=== PATIENT | female | born 1990 | race Caucasian/White ===

== ENCOUNTER 2016-03-22 18:52 | Emergency (ER) | payer OTHER ==
[~2016-03-22] VITALS: Ht 162.6 cm; Wt 50.5 kg
[~2016-03-22 18:52] MED LIST: DICY10CA56 PO; IBUP200T48 PO; ONDA8TAB10 PO; PREN-20 PO; TRAM50TA2 PO
[2016-03-22 18:55] VITALS: BP 107/67; PULSE 74; O2SAT 98
[2016-03-22] MEDS ORDERED: SODI126M NASAL (19:03)
[2016-03-22] MEDS ORDERED: ALBU18HF INHALATION (19:03)
[2016-03-22] MEDS ORDERED: NAPR500T5 PO (19:03)
--- NOTE | 2016-03-22 19:18 | ED.REPORT ---
HPI-URI / Cough / Cold Date of Service Mar 22, 2016 ED Provider: Dr. Philippe Cordova D.O. A 26 year old female with a medical history including asthma, IBS, and endometriosis presents to the ED with a productive cough onset two months ago. The patient also reports bilateral ear pain, subjective fever, chills, generalized myalgias, rhinorrhea, sore throat, and one streak of bloody sputum this morning. She denies a sudden-onset headache. Nursing Notes Stated Complaint: COUGH, THROAT PAIN Chief Complaint: FLU/Cold Symptoms Nursing Notes Reviewed: Yes Allergies: Coded Allergies: Contrast Media (Verified Allergy, Unknown, 03/22/16) Iodine and Iodide Containing Produc (Verified Allergy, Unknown, 03/22/16) aspirin (Verified Adverse Reaction, Severe, NV, 03/22/16) Scheduled Albuterol Sulfate (Ventolin HFA Inhaler) 200 Puff/18 Gm Inhaler 2 PUFF INHALATION BID Sodium Chloride (Saline Nasal Mist) 126 Ml Mist 1 SPRAY NASAL DAILY Scheduled PRN Naproxen (Naproxen) 500 Mg Tablet.dr 500 MG PO BID PRN PRN For Pain General Time Seen by MD: 19:17 Chief Complaint Cough, productive... Hx Obtained From: Patient Arrived By: Walk-in Onset Occurred: More than a week ago... (2 months) Symptom Duration: Since onset Location: : Diffuse myalgia: Ear left: Ear right: Neck (Throat) Quality: Painful Severity: Current: Moderate Severity: Maximum: Moderate Associated with: Reports: Body aches, Chills, Fever (Subjective), Rhinorrhea Pertinent Negative: Relieved by nothing Related History: Reports: Asthma Context: Immunization Status Immunizations Up to Date: Seasonal influenza Immunizations Not Up to Date: Tetanus, Pneumococcal Recent Healthcare: No recent doctor visit Past Medical History Past Medical History 1. Seasonal allergies. 2. Anemia. 3. Asthma. 4. IBS. 5. Endometriosis. 6. Chronic Pelvic Pain Past Surgical History 1. Bilateral tubal ligation (2013). 2. section 2 (). 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 Musculoskeletal: Reports: Myalgia (Generalized) Physical Exam Initial Vital Signs Vital Signs (First) Date Time Temp Pulse Resp B/P Pulse Ox O2 Delivery O2 Flow Rate FiO2 03/22/16 18:55 36.9 74 107/67 98 Room Air 03/22/16 22:15 12 Initial VS: Reviewed Head / Eyes: Atraumatic, Normocephalic Neck: Supple, Full range of motion Cardiovascular: Regular rate & rhythm, Heart sounds normal Skin: Warm, Dry, No cyanosis Neurologic: Alert, Oriented, Nonfocal Psychiatric: Mood/affect normal, Behavior normal, Normal thought content General/Constitutional: Awake, Alert Patient's skin feels hot ENT: Airway patent, Mucous membranes moist Pharynx / Tonsils / Uvula: Positive: Pharyngeal erythema Right Ear / Mastoid: Positive: Fluid behind TM purulent, Tympanic membrane red Left Ear / Mastoid: Positive: Fluid behind TM clear Respiratory / Chest: Breath sounds NL, Breath sounds = bilat, No respiratory distress Patient is coughing Interpretation & Diagnostics Interpretation & Diagnostics: Influenza Negative Bedside Rapid Strep Test Negative Re-Eval/Medical Decision Med Decision/Clinical Course I discussed pulmonary emboli and d-dimer testing with Viri. She is on hormones and she has pleuritic chest pain. I talked to her about my recommendations for d-dimer. She declines this. She states she does not feel like she has a blood clot. Her #1 complaint is a sore throat and earache. She states that she would not undergo a CT scan even if the d-dimer is positive for allergies. I did ask her to return if she changes her mind about this or if she develops any chest pain or shortness of breath. Source of Hx: Old records Re-Evaluation/Progress : Time of Eval: 21:37 Patient Status: Condition improved Re-Evaluation/Progress Note: Discussed with patient lab results, diagnosis, and plan for discharge. Follow-up and return to the ER instructions given. Patient agrees with plan for care and all questions were addressed. Counseled Regarding: Diagnosis, Lab results, Need for follow-up, When/why to return to ED Discharge & Departure Impression: Primary Impression: Bronchitis Additional Impressions: Otitis media Otitis media type: suppurative Laterality: right Chronicity: acute Recurrence: not specified Spontaneous tympanic membrane rupture: without spontaneous rupture Qualified Code: H66.001 - Acute suppurative otitis media without spontaneous rupture of ear drum, right ear Pharyngitis Pharyngitis/tonsillitis etiology: unspecified etiology Qualified Code: J02.9 - Acute pharyngitis, unspecified Disposition: Home Discharge Condition All VS Reviewed: Yes Condition: Stable Patient Instructions: Acute Bronchitis (ED), Otitis Media (ED), Pharyngitis (ED ) Additional Instructions: Thank you for entrusting us with your care. Please take Augmentin twice daily for one week as prescribed. 1-2 Percocet every six hours as needed for ear pain. Do not drink alcohol, drive, or consume acetaminophen while taking Percocet Call your primary care provider tomorrow for a follow-up appointment. Return to the ER with any new or worsening symptoms. Referrals: Negar Reis MD (PCP) Dedeibe Attestation Portions of this note were transcribed by Katharine Shen. I, Dr. Cordova, personally performed the history, physical exam, and medical decision-making; I reviewed and confirmed the accuracy of the information in the transcribed note. Signed by: Aly Carvalho, 03/22/2016, 21:49 copies to: Negar Reis MD, Todd P DO Mar 22, 2016 19:18 KATHARINE SHEN Mar 22, 2016 21:25
[2016-03-22] MEDS ORDERED: Amoxicillin-Clav 875-125 mg Tablet PO ONE (21:25)
[2016-03-22] MEDS ORDERED: _HYDROcodone/APAP 5-325 mg Tablet PO PRN (21:25)
[2016-03-22] MEDS ORDERED: _oxyCODONE/APAP 5-325 mg Tablet PO PRN (21:35)
[2016-03-22 22:15] VITALS: BP 118/72; PULSE 72; RESP 12; O2SAT 98
== END 2016-03-22 22:18 | disposition home or self-care (01) ==
LOC: SED 19:18
DX: J40 Bronchitis, not specified as acute or chronic (principal); H66.001 Acute suppurative otitis media without spontaneous rupture of ear drum, right ear; J02.9 Acute pharyngitis, unspecified; J45.909 Unspecified asthma, uncomplicated; Z87.891 Personal history of nicotine dependence; Z88.8 Allergy status to other drugs, medicaments and biological substances; Z91.041 Radiographic dye allergy status

== ENCOUNTER 2016-04-12 06:49 | Emergency (ER) | payer OTHER ==
[~2016-04-12] VITALS: Ht 162.6 cm; Wt 50.5 kg
[~2016-04-12 06:49] MED LIST changes: +ALBU18HF INHALATION; -DICY10CA56 PO; -IBUP200T48 PO; +NAPR500T5 PO; -ONDA8TAB10 PO; -PREN-20 PO; +SODI126M NASAL; -TRAM50TA2 PO
[2016-04-12 06:51] VITALS: BP 99/68; PULSE 102; RESP 15; O2SAT 98
--- NOTE | 2016-04-12 09:04 | ED.REPORT ---
HPI-General Illness Date of Service Apr 12, 2016 ED Provider: FrankCarlos DO 26yoF with PMH remarkable for asthma, IBS, and endometriosis presents with 3 month history of cough, runny nose, sore throat. The patient was seen March 22 and started on a week of Augmentin without resolution of symptoms. The patient states that the cough is worse at night, and she is developing chest pain described as substernal and made worse with coughing. The patient has also had some abdominal complaints recently being started on a probiotic after the Augmentin. The patient stated that she was vomiting recently but denies post tussive emesis or hematemesis and states that her urine is still clear and not appearing dark or dehydrated. The patient denies fever, but has had chills and mild night sweats. Nursing Notes Stated Complaint: CHEST PAIN Chief Complaint: Respiratory Complaints Nursing Notes Reviewed: Yes Allergies: Coded Allergies: Contrast Media (Verified Allergy, Unknown, 03/22/16) Iodine and Iodide Containing Produc (Verified Allergy, Unknown, 03/22/16) aspirin (Verified Adverse Reaction, Severe, NV, 03/22/16) Scheduled Albuterol Sulfate (Ventolin HFA Inhaler) 200 Puff/18 Gm Inhaler 2 PUFF INHALATION BID Fluticasone Propionate (Fluticasone Propionate) 50 Mcg/Actuation [place].susp 15.8 ML NS BID Prednisone (PredniSONE) 20 Mg Tablet 40 MG PO DAILY Sodium Chloride (Saline Nasal Mist) 126 Ml Mist 1 SPRAY NASAL DAILY Scheduled PRN Benzonatate (Tessalon Perle) 100 Mg Capsule 100 MG PO TID PRN PRN For Cough Naproxen (Naproxen) 500 Mg Tablet.dr 500 MG PO BID PRN PRN For Pain Ondansetron ODT (Ondansetron ODT) 4 Mg Tab.rapdis 4 MG PO TID PRN PRN For Nausea General Time Seen by MD: 07:30 Chief Complaint Congested, Cough, Headache, Not feeling well, Sore throat Hx Obtained From: Patient Arrived By: Walk-in Sudden in Onset?: No Onset Occurred: More than a week ago... (3 months) Symptom Duration: Since onset Location: : Chest: Head Quality: Sharp, Throbbing Severity: Current: Mild Severity: Maximum: Moderate Recent Healthcare: Recent doctor visit, Recent testing, Previous diagnosis, Prior workup Similar Sx Previous: Yes Past Medical History Past Medical History 1. Seasonal allergies on Zyrtec 2. Anemia. 3. Asthma. 4. IBS. 5. Endometriosis on Leuprolide injections 6. Chronic Pelvic Pain Past Surgical History 1. Bilateral tubal ligation (2013). 2. section 2 (2010/2012). 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, In recovery Other Social History: Good social support, Lives with children, Local resident Ambulatory Status Independent Review of Systems Full Review of Systems Constitutional: Reports: Chills, Malaise, Denies: Fever Eyes: Reports: Photophobia, Denies: Blurred bilateral, Discharge bilateral, Eye pain bilateral Ears / Nose / Throat: Reports: Nasal congestion, Sore throat, Throat pain, Denies: Ear drainage bilateral, Ear ringing bilateral, Earache bilateral, Hearing loss bilateral Respiratory: Reports: Hemoptysis (spots in mucus not consistent), Prod cough, clear, Denies: Shortness of breath, Wheezing Cardiovascular: Reports: Chest pain (with coughing) GI: Reports: Nausea, Vomiting, Denies: Bloody/tarry stool, Constipation, Diarrhea, Hematemesis, Hematochezia , Melena Female: Denies: Dysuria, Hematuria, Urination decreased, Urination increased Musculoskeletal: Denies: Extremity swelling, Neck pain Hematologic: Denies Bleeding, Denies Bruising Endocrine: Reports: Cold intolerance, Denies: Weight gain, Weight loss Skin: Denies Rash, Denies Swelling Allergy / Immune: Reports: Rhinorrhea, Denies: Hives Neurologic: Reports: Headache, Denies: Dizziness, Lightheaded Psychiatric: Denies: Change mental status, Confusion Complete sys rev & neg: except as marked. Physical Exam Vital Signs Vital Signs Date Time Temp Pulse Resp B/P Pulse Ox O2 Delivery O2 Flow Rate FiO2 04/12/16 06:51 36.4 102 15 99/68 98 Room Air Initial VS: Reviewed General/Constitutional: Well-developed, Well-nourished Head / Eyes: Atraumatic, Normocephalic, PERRL ENT: Mucous membranes moist, Conjunctiva normal, No scleral icterus Neck: Supple, Non-tender, Full range of motion Respiratory: Breath sounds normal, Clear to auscultation, No respiratory distress Cardiovascular: Regular rate & rhythm, Heart sounds normal, Intact distal pulses Abdomen / GI: Soft, Non-tender, No guarding, No rebound, No distention Back: No CVA tenderness Lymphatic: No lymphadenopathy Extremities: Vascular intact, Neuro intact, No swelling, No tenderness Skin: Warm, Dry, No cyanosis Neurologic: Alert, Oriented, Nonfocal Psychiatric: Mood/affect normal, Behavior normal, Normal thought content ENT: Airway patent, Mucous membranes moist Pharynx / Tonsils / Uvula: Positive: Tonsillar swelling R, Negative: Peritonsil abscess L, Peritonsil abscess R, Pharyngeal erythema, Tonsillar erythema L, Tonsillar erythema R, Tonsillar exudate L, Tonsillar exudate R, Tonsillar swelling L Nose: Positive: Discharge nasal clear postnasal drip Neck: Supple, No meningismus, Full range of motion, No adenopathy, No swelling , Non-tender, No masses Respiratory / Chest: Breath sounds NL, No respiratory distress, No rales, No rhonchi, No wheezing Cardiovascular: Heart rate NL, Regular rhythm, Heart sounds NL, Cap refill not delayed, Peripheral circulation NL Abdomen: Non-tender, No guarding, No rebound Re-Eval/Medical Decision Med Decision/Clinical Course 26yoF with chronic rhinorhea and cough, likely due to some allergic component as the patient does not appear acutely infectious. Clear sinus drainage, no pharnygeal erythema, clear breath sounds bilaterally. Patient previously started on Augmentin 3 weeks prior without improvement in symptoms. The patient will be started on a short course of oral steroids and advised to begin chronic intranasal steroids and told to follow up with her PCP in 1 week without significant improvement in symptoms. Discharge & Departure Primary Impression: Allergic rhinitis Additional Impressions: Post-nasal drip Chronic cough Disposition: Home Discharge Condition All VS Reviewed: Yes Condition: Stable Patient Instructions: Allergic Rhinitis (ED) Additional Instructions: During you visit to [facility] Emergency Department we spoke with you about your symptoms and compared your current illness with records of your previous ED visit. Definitive diagnosis are often difficult to make but given the chronic nature of your condition the fact that antibiotics did not resolve your problem and the physical exam there appears to be a significant allergic component. Your vital signs were stable and safe for discharge. We will send you home with - 5 day course of oral steroids to decrease inflammation in your sinuses - intranasal steroids to be taken indefinitely until discontinued by your PCP - Tesselon Pearls for cough - Zofran for nausea You should also get over the counter Pseudoephedrine to help dry up your sinuses. This requires a ID to purchase. Please take the Psuedoephedrine as directed on the packaging for the next 5 days or until resolution of your runny nose. Do not hesitate to call emergency services or your primary care physician if you experience any of the following. - High unrelenting fevers. - Uncontrolled vomiting. - Severe hypotension. - dizziness or loss of consciousness. - worsening chest pain or severe shortness of breath or severe wheezing Follow up with your primary care physician in 1-2 weeks time following your emergency department visit for medication checks and general well-being. She may decide at that time to consider further allergic testing or chronic immunosuppression testing for genetic components of your chronic rhinorrhea and cough. Referrals: Negar Reis MD (PCP) Attending Statement The patient was seen and examined together with Dr. gonzalez on 04/12/16 and I have added additional information to the note above. copies to: Negar Reis MD, Nicholas K DO Apr 12, 2016 08:25 Carlos Marie DO Apr 12, 2016 09:50
[2016-04-12] MEDS ORDERED: BENZ-12 PO (09:10)
[2016-04-12] MEDS ORDERED: ONDA4TAB12 PO (09:10)
[2016-04-12] MEDS ORDERED: FLUT15.88 NS (09:10)
[2016-04-12] MEDS ORDERED: PRE20 PO (09:10)
== END 2016-04-12 09:25 | disposition home or self-care (01) ==
LOC: SED 06:49
DX: J30.9 Allergic rhinitis, unspecified (principal); J45.909 Unspecified asthma, uncomplicated; Z87.891 Personal history of nicotine dependence; Z88.8 Allergy status to other drugs, medicaments and biological substances; Z91.041 Radiographic dye allergy status

== ENCOUNTER 2016-06-01 17:21 | Emergency (ER) | payer OTHER ==
[~2016-06-01] VITALS: Ht 160 cm; Wt 52.3 kg
[~2016-06-01 17:21] MED LIST changes: +BENZ-12 PO; +FLUT15.88 NS; +ONDA4TAB12 PO; +PRE20 PO
[2016-06-01 17:35] VITALS: BP 104/72; PULSE 76; RESP 16; O2SAT 99
[2016-06-01] MEDS ORDERED: 0.9% Sodium Chloride 1,000 ML IV ONE (18:17)
--- NOTE | 2016-06-01 18:36 | ED.REPORT ---
HPI-General Illness Date of Service Jun 01, 2016 ED Provider: Sunny Keys MD The patient is a 26 year old female with history of endometriosis, adenomyosis, anemia, PCOS, chronic pelvic pain, and s/p tubal ligation, who presents to the emergency department complaining of vaginal bleeding that began 3 weeks ago. Today she went through about 6 pads within 6 hours. She has also noticed some mild pelvic cramping. She has started to feel lightheaded over the last day. The patient states she had a tubal ligation in 2013. After this procedure her periods became abnormal and she started having severe vaginal bleeding. She had a very thorough workup completed at . She is currently getting a Lupron injection every 3 months and she is also on estradiol. Her last period before this episode of bleeding was prior to January of 2016. Her last injection was on April 23. She has an appointment with her regular doctor in [place] 1 week from today. She is not currently . Nursing Notes Stated Complaint: VAGINAL BLEEDING Chief Complaint: General Complaint Nursing Notes Reviewed: Yes Allergies: Coded Allergies: Contrast Media (Verified Allergy, Unknown, 03/22/16) Iodine and Iodide Containing Produc (Verified Allergy, Unknown, 03/22/16) aspirin (Verified Adverse Reaction, Severe, NV, 03/22/16) Scheduled Albuterol Sulfate (Ventolin HFA Inhaler) 200 Puff/18 Gm Inhaler 2 PUFF INHALATION BID Fluticasone Propionate (Fluticasone Propionate) 50 Mcg/Actuation [place].susp 15.8 ML NS BID Prednisone (PredniSONE) 20 Mg Tablet 40 MG PO DAILY Sodium Chloride (Saline Nasal Mist) 126 Ml Mist 1 SPRAY NASAL DAILY Scheduled PRN Benzonatate (Tessalon Perle) 100 Mg Capsule 100 MG PO TID PRN PRN For Cough Naproxen (Naproxen) 500 Mg Tablet.dr 500 MG PO BID PRN PRN For Pain Ondansetron ODT (Ondansetron ODT) 4 Mg Tab.rapdis 4 MG PO TID PRN PRN For Nausea General Time Seen by MD: 18:16 Chief Complaint Other (vaginal bleeding) Hx Obtained From: Patient Arrived By: Walk-in Sudden in Onset?: No Onset Occurred: More than a week ago... (3 weeks) Symptom Duration: Since onset Location: : Abdomen Quality: Painful Severity: Current: Mild Severity: Maximum: Mild Recent Healthcare: No recent hospitalization, Recent doctor visit Similar Sx Previous: Yes Past Medical History Past Medical History Notes: physician: Dr. Weinstein Past Medical History 1. Seasonal allergies on Zyrtec 2. Anemia. 3. Asthma. 4. IBS. 5. Endometriosis on Leuprolide injections 6. Chronic Pelvic Pain 7. Adenomyosis Past Surgical History 1. Bilateral tubal ligation (2013). 2. section 2 (). 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 Physical Exam Vital Signs Vital Signs Date Time Temp Pulse Resp B/P Pulse Ox O2 Delivery O2 Flow Rate FiO2 06/01/16 20:18 37.4 73 14 104/73 100 Room Air 06/01/16 17:35 36.4 76 16 104/72 99 Initial VS: Reviewed Head / Eyes: Atraumatic, Normocephalic, PERRL ENT: Mucous membranes moist, Conjunctiva normal, No scleral icterus Neck: Supple, Non-tender, Full range of motion Respiratory: Breath sounds normal, Clear to auscultation, No respiratory distress Cardiovascular: Regular rate & rhythm, Heart sounds normal, Intact distal pulses Abdomen / GI: Soft, Non-tender, No guarding, No rebound, No distention Lymphatic: No lymphadenopathy Extremities: Vascular intact, Neuro intact, No swelling, No tenderness Skin: Warm, Dry, No cyanosis Neurologic: Alert, Oriented, Nonfocal Psychiatric: Mood/affect normal, Behavior normal, Normal thought content General/Constitutional: Awake, Alert, No acute distress, Cooperative Female Genitourinary: [employer] present, External genitalia NL, Os closed There is some brownish old blood in the vaginal introitus. There is no bright red blood or active bleeding. No evidence of blood at the cervix. There is no mass at the cervix. Interpretation & Diagnostics Interpretation & Diagnostics: Pelvic ultrasound: Thin endometrium at this time. No acute findings. Lab Results Interpretation Result Diagram: 06/01/16 1835 06/01/16 1835 Test 06/01/16 18:35 White Blood Count 6.6th/mm3 (3.8-10.1) Red Blood Count 4.12mil/mm3 (3.90-5.20) Hemoglobin 12.4g/dL (12.0-15.6) Hematocrit 37.3% (35.0-46.0) Mean Corpuscular Volume 90.5fL (81-100) Mean Corpuscular Hemoglobin 30.1pg (27.0-35.0) Mean Corpuscular Hemoglobin Concent 33.2% (32.0-37.0) Red Cell Distribution Width 13.6% (12.3-15.4) Platelet Count 277bil/L (150-400) Sodium Level 136mEq/L (134-144) Potassium Level 3.6mEq/L (3.5-5.2) Chloride Level 102mEq/L (97-108) Carbon Dioxide Level 19mmol/L (18-29) Blood Urea Nitrogen 13mg/dL (6-20) Creatinine 0.72mg/dL (0.57-1.00) Estimat Glomerular Filtration Rate 140mL/min (>59) Glucose Level 95mg/dL (60-99) Calcium Level 9.0mg/dL (8.5-10.1) Total Bilirubin 0.5mg/dL (0.0-1.2) Aspartate Amino Transf (AST/SGOT) 18U/L (0-50) Alanine Aminotransferase (ALT/SGPT) 10U/L (0-32) Alkaline Phosphatase 65U/L (25-150) Total Protein 7.7g/dL (6.4-8.4) Albumin 4.3g/dL (3.4-5.0) HCG Beta Subunit < 0.500mIU/mL Hold Prater Top Tube Received (Received) Re-Eval/Medical Decision Med Decision/Clinical Course The patient is a 26 year old female with history of endometriosis, adenomyosis, anemia, PCOS, chronic pelvic pain, and s/p tubal ligation, who presents to the emergency department complaining of vaginal bleeding that began 3 weeks ago. Today she went through about 6 pads within 6 hours. She has also noticed some mild pelvic cramping. She has started to feel lightheaded over the last day. The patient states she had a tubal ligation in 2013. After this procedure her periods became abnormal and she started having severe vaginal bleeding. She had a very thorough workup completed at . She is currently getting a Lupron injection every 3 months and she is also on estradiol. Her last period before this episode of bleeding was prior to January of 2016. Her last injection was on April 23. She has an appointment with her regular doctor in [place] 1 week from today. She is not currently . Here in the emergency department the patient is afebrile, hemodynamically stable and in no apparent distress. Orthostatic VS negative. Patient was treated with Zofran for nausea and 1 L of normal saline. LABS: hct 37.3 stable compared to prior, CMP is unremarkable, HCG negative Transvaginal ultrasound as below: Unremarkable pelvic ultrasound. No findings to explain vaginal bleeding. Pelvic examination revealed a closed cervix, there is scant brownish old blood in the vaginal introitus however there is no bright red blood or active bleeding. She had no cervical motion tenderness. Examination was essentially unremarkable. Abdominal examination was completely benign without any guarding , rigidity, rebound, tenderness or other concerning findings. Her hematocrit is stable from prior and she is without any hemodynamic instability, tachycardia or hypotension. I feel the patient is appropriate for discharge. She has follow-up next week with her TECHNICAL PRODUCT MANAGER in [place]. Prior to discharge follow-up and return precautions were reviewed in detail with the patient who verbalized understanding and agreement with the plan. The patient was discharged in stable condition. Source of Hx: Old records Time of Eval: 19:16 Re-Evaluation/Progress Note: Discussed plan for pelvic exam. Time of Eval: 19:31 Re-Evaluation/Progress Note: Completed pelvic exam. Time of Eval: 19:36 Re-Evaluation/Progress Note: Discussed lab results, diagnosis, and plan for discharge. All questions were addressed. Counseled Regarding: Diagnosis, Lab results, Need for follow-up, When/why to return to ED Discharge & Departure Primary Impression: Vaginal bleeding Additional Impressions: Lightheadedness Irregular periods/menstrual cycles Disposition: Home Discharge Condition All VS Reviewed: Yes Condition: Stable Additional Instructions: Thank you for seeking care at the emergency room. Our primary goal today in the ED was to evaluate you for any life-threatening conditions. Your evaluation was reassuring. Continue taking your normal medications. Keep your appointment with your doctor that is scheduled for next Tuesday. You should return to the ED immediately if you develop increased bleeding, lightheadedness, feeling like you are going to pass out, fevers, vomiting, or any other concerning signs or symptoms. Thank you for letting us partake in your care today. Referrals: Negar Reis MD (PCP) Scribe Attestation Portions of this note were transcribed by Tracy Fischer. I, Dr. Keys personally performed the history, physical exam and medical decision-making; I reviewed and confirmed the accuracy of the information in the transcribed note. Signed by: Aly Diop, 06/01/2016 at 2000. copies to: Negar Reis MD, Beck O MD Jun 01, 2016 18:36 Tracy Fischer Jun 01, 2016 18:38
[2016-06-01 18:40] LABS: Mean Corpuscular Hemoglobin 30.1 pg (27.0-35.0); Mean Corpuscular Volume 90.5 fL (81-100)
[2016-06-01 20:18] VITALS: BP 104/73; PULSE 73; RESP 14; O2SAT 100
--- NOTE | 2016-06-01 20:42 | DRSVH ---
PROCEDURE: US PELVIC SONOGRAM + TRANSVAGINAL SONOGRAM INDICATIONS: vag bleed TECHNIQUE: Real-time scanning was performed of the pelvic organs, with image documentation. Additional endovagi nal scanning was necessary due to incomplete visualization of the adnexal and endometrial structures by transabdominal scanning. COMPARISON: [facility], US, US PELVIC+TRANSVAG, 08/28/2015, 7:09. FINDINGS: Transabdominal scanning: Limited scanning through the kidneys shows no hydronephrosis. No pathologi c free abdominal or pelvic fluid. Endovaginal scanning: Uterus: Uterus is normal in size at 8.7 x 2.6 x 4.8 cm. The endometrium measures 4.5 mm in combined thickness. Ovaries: The right ovary measures 3.2 x 1.6 x 2.7 cm and has a normal echotexture. The left ovary karolina sures 4.4 x 2.3 x 2.6 cm. Both ovaries demonstrate normal blood flow. Ultiple simple cysts are presen t within the left ovary, largest of which measures 2.0 cm in diameter. IMPRESSION: Unremarkable pelvic ultrasound. No findings to explain vaginal bleeding. Dictated by: Lacey Griffin M.D. on 06/01/2016 at 20:39 Approved by: Lacey Griffin M.D. on 06/01/2016 at 20:41
== END 2016-06-01 20:19 | disposition home or self-care (01) ==
LOC: SED 17:21
DX: N93.9 Abnormal uterine and vaginal bleeding, unspecified (principal); R42 Dizziness and giddiness; N92.6 Irregular menstruation, unspecified; J45.909 Unspecified asthma, uncomplicated; F17.200 Nicotine dependence, unspecified, uncomplicated; Z91.041 Radiographic dye allergy status; Z88.6 Allergy status to analgesic agent

== ENCOUNTER 2016-06-15 19:43 | Emergency (ER) | payer OTHER ==
[~2016-06-15] VITALS: Ht 160 cm; Wt 52.3 kg
[2016-06-15 19:56] VITALS: BP 104/77; PULSE 75; RESP 16; O2SAT 98
--- NOTE | 2016-06-15 21:11 | ED.REPORT ---
HPI-Abd Pain F Under 40 Date of Service Jun 15, 2016 ED Provider: Praful Delong MD Patient is a 26 y/o female with a history of endometriosis, adenomyosis, anemia , PCOS, chronic pelvic pain, and s/p tubal ligation who presents with right- sided back pain that began five days ago. The pain is exacerbated by motion and not relieved by her normal pain medications. Patient has been seen here 06/01/16 complaining of similar symptoms. She denies cough, fever or dysuria. Her last menstrual period was on 05/22/2016. Nursing Notes Stated Complaint: RIGHT SIDE PAIN Chief Complaint: Female Abdominal Pain Nursing Notes Reviewed: Yes Allergies: Coded Allergies: Contrast Media (Verified Allergy, Unknown, 06/15/16) Iodine and Iodide Containing Produc (Verified Allergy, Unknown, 06/15/16) aspirin (Verified Adverse Reaction, Severe, NV, 06/15/16) Scheduled Albuterol Sulfate (Ventolin HFA Inhaler) 200 Puff/18 Gm Inhaler 2 PUFF INHALATION BID Cephalexin (Cephalexin) 500 Mg Capsule 500 MG PO TID Fluticasone Propionate (Fluticasone Propionate) 50 Mcg/Actuation [place].susp 15.8 ML NS BID Prednisone (PredniSONE) 20 Mg Tablet 40 MG PO DAILY Sodium Chloride (Saline Nasal Mist) 126 Ml Mist 1 SPRAY NASAL DAILY Scheduled PRN Benzonatate (Tessalon Perle) 100 Mg Capsule 100 MG PO TID PRN PRN For Cough Naproxen (Naproxen) 500 Mg Tablet.dr 500 MG PO BID PRN PRN For Pain Ondansetron ODT (Ondansetron ODT) 4 Mg Tab.rapdis 4 MG PO TID PRN PRN For Nausea General Time Seen by MD: 20:47 Chief Complaint Other (right-sided back pain) Hx Obtained From: Patient Arrived By: Walk-in Sudden in Onset?: No Onset Occurred: 5 days ago Symptom Duration: Since onset Recent Healthcare: No recent hospitalization, Recent doctor visit Past Medical History Past Medical History Notes: physician: Dr. Weinstein Past Medical History 1. Seasonal allergies on Zyrtec 2. Anemia. 3. Asthma. 4. IBS. 5. Endometriosis on Leuprolide injections 6. Chronic Pelvic Pain 7. Adenomyosis Past Surgical History 1. Bilateral tubal ligation (2013). 2. section 2 (). 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 Physical Exam Initial Vital Signs Vital Signs (First) Date Time Temp Pulse Resp B/P Pulse Ox O2 Delivery O2 Flow Rate FiO2 06/15/16 19:56 37.5 75 16 104/77 98 Room Air Initial VS: Reviewed Head / Eyes: Atraumatic, Normocephalic Extremities: Vascular intact, Neuro intact Skin: Warm, Dry Neurologic: Alert, Oriented General/Constitutional: Awake, Alert, No acute distress Respiratory / Chest: Atraumatic, Breath sounds NL, No respiratory distress Cardiovascular: Heart rate NL, Regular rhythm, Heart sounds NL Abdomen: Atraumatic, Soft, Non-tender Back: Atraumatic, Full range of motion right CVAT Interpretation & Diagnostics Lab Results Interpretation Test 06/15/16 21:30 Urine Color Straw (YELLOW) Urine Appearance Slightly cloudy Urine pH 6.0 (5.0-8.0) Urine Specific [place] 1.026 (1.003-1.035) Urine Protein Negativemg/dL (NEG,TRACE) Urine Glucose (UA) Negativemg/dL (NEGATIVE) Urine Ketones Negativemg/dL (NEGATIVE) Urine Occult Blood Negative (NEGATIVE) Urine Nitrite Negative (NEGATIVE) Urine Bilirubin Negative (NEGATIVE) Urine Urobilinogen Normalmg/dL (NORMAL) Urine Leukocyte Esterase Trace (NEGATIVE) Urine RBC 0-2/hpf (0-2) Urine WBC 11-50/hpf (0-5) Urine Epithelial Cells Moderate/hpf (NONE-MOD) Urine Crystals None seen (NONE SEEN) Urine Bacteria Few/hpf (NONE-FEW) Urine Hyaline Casts None/lpf (NONE) Urine Granular Casts None seen (NONE SEEN) Urine Waxy Casts None seen (NONE SEEN) Urine Red Blood Cell Casts None seen (NONE SEEN) Urine White Blood Cell Casts None seen (NONE SEEN) Urine Mucus Present (None Seen) Urine Trichomonas None seen (NONE SEEN) Urine Yeast None (NONE SEEN) Urinalysis Comment None Urine Culture Reflexed Indicated Lab Results Interpretation: urine negative X-Ray Chest Interpretation Chest Xray Interpretation: IMPRESSION: No acute process. Dictated by: Krista Craft M.D. on 06/15/2016 at 21:14 Approved by: Krista Craft M.D. on 06/15/2016 at 21:15 Interpretation / Wet Read by: Interpret - Radiologist Re-Eval/Medical Decision Source of Hx: Old records Re-Evaluation/Progress : Time of Eval: 23:30 Patient Status: Condition improved Re-Evaluation/Progress Note: Patient is informed of the plan for discharge. She agrees and understands the plan. All questions have been answered at this time. Counseled Regarding: Diagnosis, Lab results, Need for follow-up, When/why to return to ED Discharge & Departure Primary Impression: Pyelonephritis Disposition: Home Patient Instructions: Acute Pyelonephritis (ED) Additional Instructions: ED evaluation included interview, examination, urinalysis and chest x-ray. Examination and urinalysis suggest a left kidney infection. We started cephalexin 500 mg 3 times a day for 10 days. May use oxycodone/APAP one every 4 -6 hours as needed for pain. Return to emergency department for fevers, shaking chills, frequent vomiting or increasing pain. Follow-up with primary care in about 5 days for recheck. Referrals: Negar Reis MD (PCP) Scribe Attestation Portions of this note were transcribed by Ronny Berrios and Gali Cohen. I, Dr. Delong personally performed the history, physical exam and medical decision- making; I reviewed and confirmed the accuracy of the information in the transcribed note. Signed by: Ronny Berrios and Gail Cohen, Aly, 2016 and 0040. copies to: Negar Reis MD, Donald L MD Jun 15, 2016 21:10 Ronny Berrios Jun 15, 2016 21:17 GAIL COHEN Jun 16, 2016 00:37 Ronny Berrios Jun 15, 2016 21:17 GAIL COHEN Jun 16, 2016 00:37
--- NOTE | 2016-06-15 21:16 | DRSVH ---
PROCEDURE: X-RAY CHEST, TWO VIEWS ([id number]) INDICATIONS: back pain TECHNIQUE: 2 views of the chest were acquired. COMPARISON: [facility], CR, XR CHEST 2VW, 11/01/2015, 12:40. FINDINGS: Surgical changes and devices: None. Lungs and pleura: No pleural effusions or pneumothorax. Lungs are clear. Mediastinum: Mediastinal contours are normal. Heart size is normal. Bones and chest wall: No suspicious bony abnormalities. Soft tissues appear unremarkable. IMPRESSION: No acute process. Dictated by: Krista Craft M.D. on 06/15/2016 at 21:14 Approved by: Krista Craft M.D. on 06/15/2016 at 21:15
[2016-06-15 21:57] LABS: APPEARANCE,URINE SLIGHTLY CLOUDY (CLEAR,HAZY); COLOR,URINE STRAW (YELLOW); OCCULT BLOOD,URINE NEGATIVE (NEGATIVE); UROBILINOGEN,URINE NORMAL (NORMAL)
[2016-06-15] MEDS ORDERED: _oxyCODONE/APAP 5-325 mg Tablet PO PRN (22:15)
[2016-06-15] MEDS ORDERED: CEPH500C PO (22:15)
== END 2016-06-15 22:47 | disposition home or self-care (01) ==
LOC: SED 19:43
DX: N12 Tubulo-interstitial nephritis, not specified as acute or chronic (principal); J45.909 Unspecified asthma, uncomplicated; Z87.891 Personal history of nicotine dependence; Z91.041 Radiographic dye allergy status; Z88.8 Allergy status to other drugs, medicaments and biological substances

== ENCOUNTER 2016-06-20 16:42 | Emergency (ER) | payer OTHER ==
[~2016-06-20] VITALS: Ht 161.9 cm; Wt 52.7 kg
[~2016-06-20 16:42] MED LIST changes: +CEPH500C PO
[2016-06-20 16:50] VITALS: BP 111/75; PULSE 66; RESP 16; O2SAT 100
--- NOTE | 2016-06-20 18:04 | ED.REPORT ---
HPI-General Illness Date of Service Jun 20, 2016 ED Provider: Philippe Cordova DO The pt is a 26 year old female w/ a hx of asthma and allergies who presents to the ED due to nausea following cocaine exposure at work [employer]. She found a co- worker smoking cocaine in the work bathroom and she is worried she inhaled some. She reports her head is "spinning" and that she feels high. She alerted police and he is now in fci. She denies chest pain, vomiting, and change in LOC. Nursing Notes Stated Complaint: EXPOSED TO COCAINE AT WORK Chief Complaint: General Complaint Nursing Notes Reviewed: Yes Allergies: Coded Allergies: Contrast Media (Verified Allergy, Unknown, 06/15/16) Iodine and Iodide Containing Produc (Verified Allergy, Unknown, 06/15/16) aspirin (Verified Adverse Reaction, Severe, NV, 06/15/16) Scheduled Albuterol Sulfate (Ventolin HFA Inhaler) 200 Puff/18 Gm Inhaler 2 PUFF INHALATION BID Cephalexin (Cephalexin) 500 Mg Capsule 500 MG PO TID Fluticasone Propionate (Fluticasone Propionate) 50 Mcg/Actuation [place].susp 15.8 ML NS BID Prednisone (PredniSONE) 20 Mg Tablet 40 MG PO DAILY Sodium Chloride (Saline Nasal Mist) 126 Ml Mist 1 SPRAY NASAL DAILY Scheduled PRN Benzonatate (Tessalon Perle) 100 Mg Capsule 100 MG PO TID PRN PRN For Cough Naproxen (Naproxen) 500 Mg Tablet.dr 500 MG PO BID PRN PRN For Pain Ondansetron ODT (Ondansetron ODT) 4 Mg Tab.rapdis 4 MG PO TID PRN PRN For Nausea General Time Seen by MD: 18:04 Chief Complaint Other (nausea) Hx Obtained From: Patient Arrived By: Walk-in Sudden in Onset?: Yes Onset Occurred: Just prior to arrival Context of Onset: Other (cocaine exposure) Symptom Duration: Since onset Context: Occurred at: Workplace Recent Healthcare: No recent doctor visit, No recent hospitalization Similar Sx Previous: No Past Medical History Past Medical History Notes: physician: Dr. Weinstein Past Medical History 1. Seasonal allergies on Zyrtec 2. Anemia. 3. Asthma. 4. IBS. 5. Endometriosis on Leuprolide injections 6. Chronic Pelvic Pain 7. Adenomyosis Past Surgical History 1. Bilateral tubal ligation (2013). 2. section 2 (). 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 Physical Exam Vital Signs Vital Signs Date Time Temp Pulse Resp B/P Pulse Ox O2 Delivery O2 Flow Rate FiO2 06/20/16 18:44 62 18 112/70 100 Room Air 06/20/16 16:50 37.4 66 16 111/75 100 Room Air Initial VS: Reviewed Head / Eyes: Atraumatic, Normocephalic, PERRL ENT: Mucous membranes moist Respiratory: Breath sounds normal, Clear to auscultation, No respiratory distress Cardiovascular: Regular rate & rhythm, Heart sounds normal, Intact distal pulses Abdomen / GI: Soft, Non-tender Extremities: Vascular intact, Neuro intact, No swelling Skin: Warm, Dry General/Constitutional: Awake, Alert Behavior: Positive: Anxious Interpretation & Diagnostics Lab Results Interpretation Test 06/20/16 18:15 Urine Opiates Screen Negative Urine Methadone Screen Negative Urine Barbiturates Screen Negative Urine Amphetamines Screen Negative Urine Benzodiazepines Screen Negative Urine Cocaine Metabolite Screen Negative Urine Cannabinoids Screen Negative Lab Results Interpretation: urine drug screen negative ECG Interpretation Time: 18:20 Interpreted by: ED physician Normal ECG Interpretation: Normal ECG w/ rate of... (63) Re-Eval/Medical Decision Med Decision/Clinical Course No signs of cocaine toxicity. EKG is normal. Vital signs are stable. Urine drug screen is negative. HCG is negative. Normal Accu-Chek. Recommend she avoids contact at the work place for 24 hours. Follow-up with her workplace employee health office. Return if any problems or any worsening symptoms. Time of Eval: 18:20 Re-Evaluation/Progress Note: Pt checked. EKG and urine drugs screen are negative. Plan for discharge. F/U and RTER warnings given. Pt understands and agrees with plan. Counseled Regarding: Diagnosis, Lab results, Need for follow-up, When/why to return to ED Discharge & Departure Primary Impression: Exposure Encounter type: initial encounter Qualified Code: T75.89XA - Other specified effects of external causes, initial encounter Disposition: Home Discharge Condition All VS Reviewed: Yes Condition: Stable Additional Instructions: Your urine drug screen is negative, your EKG is normal and you are not . Follow up with the primary care physician of your choice. Do not go back to work today and get plenty of rest. Return to the Emergency Department for any new or worsening symptoms. Referrals: Negar Reis MD (PCP) [facility] Scribe Attestation Portion of this note were transcribed by Liz Marroquin. I, Dr. Cordova, personally performed the history, physical exam, and medical decision-making: I reviewed and confirmed the accuracy for the information in the transcribed note. Signed by: maria del carmen Molina, 06/20/16 1900 copies to: Negar Reis MD; [facility] Philippe Cordova DO Jun 20, 2016 18:04 Liz Marroquin Jun 20, 2016 18:08
[2016-06-20 18:44] VITALS: BP 112/70; PULSE 62; RESP 18; O2SAT 100
== END 2016-06-20 19:23 | disposition home or self-care (01) ==
LOC: SED 16:42
DX: T75.89XA Other specified effects of external causes, initial encounter (principal); R11.0 Nausea; X58.XXXA Exposure to other specified factors, initial encounter; Y93.89 Activity, other specified; Y99.0 Civilian activity done for income or pay; Y92.69 Other specified industrial and construction area as the place of occurrence of the external cause; J45.909 Unspecified asthma, uncomplicated; N80.9 Endometriosis, unspecified; Z87.891 Personal history of nicotine dependence; Z79.51 Long term (current) use of inhaled steroids; Z79.52 Long term (current) use of systemic steroids; Z88.6 Allergy status to analgesic agent
CPT/HCPCS: 81025; 82948; 93005; 99284; G0480

== ENCOUNTER 2016-07-21 16:32 | Emergency (ER) | payer OTHER ==
[~2016-07-21] VITALS: Ht 162.6 cm; Wt 50.0 kg
[2016-07-21 16:45] VITALS: BP 96/63; PULSE 54; RESP 15; O2SAT 99
--- NOTE | 2016-07-21 19:04 | ED.REPORT ---
HPI-Abd Pain F Under 40 Date of Service July 21, 2016 ED Provider: Dr. Lozano Pt is a 26 y/o female w/ a hx of IBS, endometriosis, chronic pelvic pain, presenting to the ED via EMS c/o diffuse right-sided abdominal pain onset 15:00 today. The patient was at work, drank some water, and then suddenly developed vomiting followed by intense diffuse abdominal pain which she describes as worse than labor pains. She came into the the ED because when she was heading to the bathroom she became lightheaded and experienced near-syncope which she believes is caused by her generalized weakness. The patient relates she has a polyp in her uterus and has a surgery planned in 3 weeks to remove it. She does not usually get heartburn. Pt denies fever, diarrhea, dysuria, urinary frequency. Pelvic US in 06/01/16 was interpreted as: "Unremarkable pelvic ultrasound. No findings to explain vaginal bleeding." Nursing Notes Stated Complaint: ABDOMINAL PAIN Chief Complaint: Female Abdominal Pain Nursing Notes Reviewed: Yes Allergies: Coded Allergies: dicyclomine (Verified Allergy, Intermediate, itching, nausea, 07/21/16) Contrast Media (Verified Allergy, Unknown, 06/15/16) Iodine and Iodide Containing Produc (Verified Allergy, Unknown, 06/15/16) aspirin (Verified Adverse Reaction, Severe, NV, 06/15/16) hydrocodone (Verified Adverse Reaction, Intermediate, nausea, 07/21/16) Scheduled Albuterol Sulfate (Ventolin HFA Inhaler) 200 Puff/18 Gm Inhaler 2 PUFF INHALATION BID Cephalexin (Cephalexin) 500 Mg Capsule 500 MG PO TID Fluticasone Propionate (Fluticasone Propionate) 50 Mcg/Actuation [place].susp 15.8 ML NS BID Prednisone (PredniSONE) 20 Mg Tablet 40 MG PO DAILY Sodium Chloride (Saline Nasal Mist) 126 Ml Mist 1 SPRAY NASAL DAILY Scheduled PRN Benzonatate (Tessalon Perle) 100 Mg Capsule 100 MG PO TID PRN PRN For Cough Naproxen (Naproxen) 500 Mg Tablet.dr 500 MG PO BID PRN PRN For Pain Ondansetron ODT (Ondansetron ODT) 4 Mg Tab.rapdis 4 MG PO TID PRN PRN For Nausea General Time Seen by MD: 19:04 Chief Complaint Abdominal pain Hx Obtained From: Patient, EMS Arrived By: Ambulance Sudden in Onset?: Yes Onset Occurred: 1 - 4 hours ago Symptom Duration: Waxes and wanes Location: : RLQ: RUQ Quality: Painful Severity: Current: Moderate Severity: Maximum: Moderate Similar Sx Previous: No Past Medical History Past Medical History Notes: physician: Dr. Weinstein Past Medical History 1. Seasonal allergies on Zyrtec 2. Anemia. 3. Asthma. 4. IBS. 5. Endometriosis on Leuprolide injections 6. Chronic Pelvic Pain 7. Adenomyosis Past Surgical History 1. Bilateral tubal ligation (2013). 2. section 2 (). 3. 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 Physical Exam Initial Vital Signs Vital Signs (First) Date Time Temp Pulse Resp B/P Pulse Ox O2 Delivery O2 Flow Rate FiO2 07/21/16 16:45 36.4 54 15 96/63 99 07/21/16 19:31 Room Air Initial VS: Reviewed, Vital signs abnormal Head / Eyes: Atraumatic, Normocephalic, PERRL ENT: Mucous membranes moist, Conjunctiva normal, No scleral icterus Neck: Supple, Non-tender, Full range of motion Extremities: Vascular intact, Neuro intact, No swelling, No tenderness Skin: Warm, Dry, No cyanosis Neurologic: Alert, Oriented, Nonfocal Psychiatric: Mood/affect normal, Behavior normal, Normal thought content General/Constitutional: Awake, Alert, No acute distress, Cooperative, Not toxic appearing Respiratory / Chest: Breath sounds NL, Breath sounds = bilat, No respiratory distress, No rales, No rhonchi, No wheezing Cardiovascular: Heart rate NL, Regular rhythm, Heart sounds NL, No gallop, No murmurs, No rubs Abdomen: Atraumatic, Soft, No rebound Bowel sounds hypoactive Mild guarding about the entire right abdomen. RLQ tenderness present. No RUQ tenderness Back: Full range of motion, Painless range of motion Mild right CVAT Interpretation & Diagnostics Interpretation & Diagnostics: CT KUB w/out contrast: IMPRESSION: Cause of right lower quadrant pain is not appreciated. The structure thought to be the appendix with an appendicolith within it does not reveal inflammatory change. This is seen on cuts 54 through 64. Gallbladder and kidney and ovaries are considered are grossly normal in CT. Dictated by: Vitor Ceballos M.D. on 07/21/2016 at 20:11 Approved by: Vitor Ceballos M.D. on 07/21/2016 at 20:16 Lab Results Interpretation Result Diagram: 07/21/16 1701 07/21/16 1701 Test 07/21/16 17:01 07/21/16 19:30 White Blood Count 8.2th/mm3 (3.8-10.1) Red Blood Count 4.42mil/mm3 (3.90-5.20) Hemoglobin 13.9g/dL (12.0-15.6) Hematocrit 40.0% (35.0-46.0) Mean Corpuscular Volume 90.5fL (81-100) Mean Corpuscular Hemoglobin 31.4pg (27.0-35.0) Mean Corpuscular Hemoglobin Concent 34.8% (32.0-37.0) Red Cell Distribution Width 12.4% (12.3-15.4) Platelet Count 214bil/L (150-400) Neutrophils (%) (Auto) 42.3% (40-74) Lymphocytes (%) (Auto) 49.4% (14-46) Monocytes (%) (Auto) 5.5% (4-12) Eosinophils (%) (Auto) 2.2% (0-5) Basophils (%) (Auto) 0.5% (0-3) Hold Purple Top Tube Received (Received) Hold Blue Top Tube Received (Received) Sodium Level 141mEq/L (134-144) Potassium Level 3.7mEq/L (3.5-5.2) Chloride Level 102mEq/L (97-108) Carbon Dioxide Level 23mmol/L (18-29) Blood Urea Nitrogen 14mg/dL (6-20) Creatinine 0.81mg/dL (0.57-1.00) Estimat Glomerular Filtration Rate 122mL/min (>59) Glucose Level 111mg/dL (60-99) Calcium Level 9.6mg/dL (8.5-10.1) Magnesium Level 2.1mg/dL (1.6-2.6) Total Bilirubin 0.5mg/dL (0.0-1.2) Aspartate Amino Transf (AST/SGOT) 20U/L (0-50) Alanine Aminotransferase (ALT/SGPT) 12U/L (0-32) Alkaline Phosphatase 76U/L (25-150) Total Protein 7.7g/dL (6.4-8.4) Albumin 4.5g/dL (3.4-5.0) Lipase 34U/L (13-60) Hold Red Top Tube Received (Received) Hold [place]ent Top Tube Received (Received) Urine Color Dark yellow (YELLOW) Urine Appearance Clear (CLEAR,HAZY) Urine pH 8.0 (5.0-8.0) Urine Specific [place] 1.010 (1.003-1.035) Urine Protein Tracemg/dL (NEG,TRACE) Urine Glucose (UA) Negativemg/dL (NEGATIVE) Urine Ketones Tracemg/dL (NEGATIVE) Urine Occult Blood Negative (NEGATIVE) Urine Nitrite Negative (NEGATIVE) Urine Bilirubin Negative (NEGATIVE) Urine Urobilinogen Normalmg/dL (NORMAL) Urine Leukocyte Esterase Negative (NEGATIVE) Urine RBC 0-2/hpf (0-2) Urine WBC 0-5/hpf (0-5) Urine Epithelial Cells Many/hpf (NONE-MOD) Urine Crystals None seen (NONE SEEN) Urine Bacteria Few/hpf (NONE-FEW) Urine Hyaline Casts None/lpf (NONE) Urine Granular Casts None seen (NONE SEEN) Urine Waxy Casts None seen (NONE SEEN) Urine Red Blood Cell Casts None seen (NONE SEEN) Urine White Blood Cell Casts None seen (NONE SEEN) Urine Mucus None seen (None Seen) Urine Trichomonas None seen (NONE SEEN) Urine Yeast None (NONE SEEN) Urinalysis Comment None Urine Culture Reflexed Not indicated Re-Eval/Medical Decision Source of Hx: Old records Re-Evaluation/Progress : Time of Eval: 20:45 Re-Evaluation/Progress Note: Pt rechecked. Discussed imaging and lab results. Informed pt of plan for treatment. Pt understands and agrees with plan for treatment. F/U instructions and RTER warnings given. All questions addressed. Counseled Regarding: Diagnosis, Lab results, Need for follow-up, When/why to return to ED Discharge & Departure Primary Impression: Abdominal pain of unknown etiology Disposition: Home Discharge Condition All VS Reviewed: Yes Condition: Stable Patient Instructions: Acute Abdominal Pain (ED) Additional Instructions: The cause of your abdominal pain is unclear but is not life threatening at this time. Your CT scan and lab results were all normal. sometimes, appendicitis can be present and hard to figure out. If you are getting worse, you need to return and we need to recheck Take 1 Percocet every 6 hours as needed for severe breakthrough pain. Do not drink alcohol or drive while taking Percocet. Return to the emergency department for increased or persistent pain, fever, persistent vomiting, bloody stools or vomit, profound weakness, or for other concerning symptoms. Follow-up with your primary care later this week or early next week for a recheck. Thank you for waiting so long today. I hope you feel better and your endometriosis surgery goes well. Referrals: Negar Reis MD (PCP) [place] Attestation Portions of this note were transcribed by Shantanu Negrete. I, Dr. Lozano personally performed the history, physical exam and medical decision-making; I reviewed and confirmed the accuracy of the information in the transcribed note. Signed by Aly Melgar, 07/21/16 - 1929 copies to: Negar Reis MD, Shawna L MD July 21, 2016 19:04 SHANTANU NEGRETE July 21, 2016 19:11
[2016-07-21 19:07] LABS: BASOPHILS % (AUTO) 0.5 % (0-3); EOSINOPHILS % (AUTO) 2.2 % (0-5); MONOCYTES % (AUTO) 5.5 % (4-12); Mean Corpuscular Hemoglobin 31.4 pg (27.0-35.0); Mean Corpuscular Volume 90.5 fL (81-100); NEUTROPHILS % (AUTO) 42.3 % (40-74); Platelet Count 214 bil/L (150-400)
[2016-07-21 19:21] LABS: Magnesium 2.1 mg/dL (1.6-2.6)
[2016-07-21 19:31] VITALS: BP 99/63; PULSE 58; RESP 18; O2SAT 99
[2016-07-21 20:06] LABS: APPEARANCE,URINE CLEAR (CLEAR,HAZY); COLOR,URINE DARK YELLOW (YELLOW); OCCULT BLOOD,URINE NEGATIVE (NEGATIVE); UROBILINOGEN,URINE NORMAL (NORMAL)
--- NOTE | 2016-07-21 20:18 | DRSVH ---
PROCEDURE: CT KUB ([id number]) INDICATIONS: right lower quadrant pain TECHNIQUE: Noncontrast 5 mm thick sections acquired from the diaphragms to the symphysis. 5 mm thick coronal an d sagittal reformats were then performed. For radiation dose reduction, the following was used: aut omated exposure control, adjustment of mA and/or kV according to patient size. COMPARISON: None. FINDINGS: Image quality: Excellent. Lung bases: Lung bases are clear. Heart size is normal. Urinary system: Both kidneys are normal in size. No kidney stones. No hydronephrosis or perinephri c fat stranding. Both ureters appear non-dilated throughout their expected courses. Bladder wall th ickness is normal; no calcified bladder stones. Other solid organs: Liver and spleen are normal in size. Gallbladder is within normal limits. Panc reas is normal in contours. No adrenal nodules. Peritoneum and bowel: Unenhanced bowel loops demonstrate normal wall thickness and caliber. No free fluid or air. The structure thought to be the appendix with an appendicolith does not show any infla mmatory change. Nodes and vessels: No retroperitoneal or mesenteric adenopathy by size criteria. Aorta and inferior vena cava are normal in caliber. Abdominal wall: No ventral hernias. Pelvis: No free pelvic fluid. No inguinal hernias or adenopathy. Bones: No suspicious bony lesions. No vertebral body compression fractures. IMPRESSION: Cause of right lower quadrant pain is not appreciated. The structure thought to be the appendix with an appendicolith within it does not reveal inflammatory change. This is seen on cuts 54 through 64. Gallbladder and kidney and ovaries are considered are grossly normal in CT. Dictated by: Vitor Ceballos M.D. on 07/21/2016 at 20:11 Approved by: Vitor Ceballos M.D. on 07/21/2016 at 20:16
[2016-07-21] MEDS ORDERED: oxyCODONE-Acetamin 5-325 mg Tablet PO ONE (20:50)
[2016-07-21] MEDS ORDERED: _oxyCODONE/APAP 5-325 mg Tablet PO PRN (20:50)
[2016-07-21 21:05] VITALS: BP 110/66; PULSE 62; RESP 17; O2SAT 100
== END 2016-07-21 20:54 | disposition home or self-care (01) ==
LOC: SED 16:32 → EDUNIT# 16:32 → EDBD 16:32 → SED 20:54
DX: R10.84 Generalized abdominal pain (principal); R55 Syncope and collapse; R53.1 Weakness; J45.901 Unspecified asthma with (acute) exacerbation; Z87.891 Personal history of nicotine dependence; Z87.19 Personal history of other diseases of the digestive system; Z86.010 Personal history of colon polyps; K58.9 Irritable bowel syndrome, unspecified; Z88.6 Allergy status to analgesic agent; Z91.041 Radiographic dye allergy status; Z88.5 Allergy status to narcotic agent

== ENCOUNTER 2016-08-10 17:38 | Emergency (ER) | payer OTHER ==
[~2016-08-10] VITALS: Ht 160 cm; Wt 50.2 kg
[2016-08-10 17:42] VITALS: BP 97/64; PULSE 58; RESP 18; O2SAT 97
--- NOTE | 2016-08-10 18:24 | ED.REPORT ---
HPI-General Illness Date of Service Aug 10, 2016 ED Provider: Jean-Claude Ghulam Patient is a 26 year old female with a hx of endometriosis, IBS, and chronic pelvic pain who presents to the ED complaining of sharp, persistent, nonradiating pelvic pain s/p a hysteroscopy and polyp removal yesterday. She reports that she was supposed to receive pain medication but they "forgot to give a hard copy" and she cannot go back to [place] to get a prescription. She was also told a month ago she has an infection in her appendix but "my doctor doesn't want me to take the antibiotics because of my IBS". She was prescribed Augmentin because she was told she had "fecal matter" in her appendix but has not been taking it. She was seen for these symptoms in the department on July 20. She denies fever, vomiting, vaginal bleeding, or any other symptoms. The pain today she states is from the procedure yesterday, not the pain she's had in the R side of her abdomen for the last month, which is not any worse today. She takes hormone replacements. Nursing Notes Stated Complaint: PAIN DUE TO SURGERY Chief Complaint: Female Abdominal Pain Nursing Notes Reviewed: Yes Allergies: Coded Allergies: Contrast Media (Verified Allergy, Unknown, 06/15/16) Iodine and Iodide Containing Produc (Verified Allergy, Unknown, 06/15/16) doxycycline (Verified Allergy, Unknown, 08/10/16) aspirin (Verified Adverse Reaction, Severe, NV, 06/15/16) hydrocodone (Verified Adverse Reaction, Intermediate, nausea, 07/21/16) Scheduled Albuterol Sulfate (Ventolin HFA Inhaler) 200 Puff/18 Gm Inhaler 2 PUFF INHALATION BID Cephalexin (Cephalexin) 500 Mg Capsule 500 MG PO TID Fluticasone Propionate (Fluticasone Propionate) 50 Mcg/Actuation [place].susp 15.8 ML NS BID Prednisone (PredniSONE) 20 Mg Tablet 40 MG PO DAILY Sodium Chloride (Saline Nasal Mist) 126 Ml Mist 1 SPRAY NASAL DAILY Scheduled PRN Benzonatate (Tessalon Perle) 100 Mg Capsule 100 MG PO TID PRN PRN For Cough Naproxen (Naproxen) 500 Mg Tablet.dr 500 MG PO BID PRN PRN For Pain Ondansetron ODT (Ondansetron ODT) 4 Mg Tab.rapdis 4 MG PO TID PRN PRN For Nausea General Time Seen by : 18:24 Chief Complaint Other (Surgical pain) Hx Obtained From: Patient Arrived By: Walk-in Sudden in Onset?: Yes Onset Occurred: Yesterday Symptom Duration: Since onset Location: : Abdomen Radiation: : Does not radiate Severity: Current: Moderate Severity: Maximum: Moderate Associated with: Reports: Abdominal pain Relieved by: Prescription meds Recent Healthcare: Recent doctor visit, Previous surgery Past Medical History Past Medical History Notes: physician: Dr. Weinstein Past Medical History 1. Seasonal allergies on Zyrtec 2. Anemia. 3. Asthma. 4. IBS. 5. Endometriosis on Leuprolide injections 6. Chronic Pelvic Pain 7. Adenomyosis Past Surgical History 1. Bilateral tubal ligation (2013). 2. section 2 (). 3. 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 Physical Exam Nursing note and vitals reviewed. Constitutional: Well-developed, well-nourished. Not diaphoretic. Head: Normocephalic and atraumatic. Mouth/Throat: Oropharynx is clear and moist. No oropharyngeal exudate. Eyes: EOM are normal. Pupils are equal, round, and reactive to light. Neck: Supple, no tracheal deviation. Cardiovascular: Normal rate, regular rhythm. Equal and intact distal pulses throughout. Pulmonary/Chest: Effort normal and breath sounds normal. No respiratory distress. Abdominal: Soft. No distension. There is no focal tenderness to palpation, rebound or guarding. Bowel sounds present. Musculoskeletal: Range of motion grossly intact, moving all extremities. No edema or tenderness appreciated. Neurological: AOx3. Grossly nonfocal exam. Strength and sensation intact and equal to bilateral upper and lower extremities. Skin: Warm and dry, no rashes or pallor appreciated. Psychiatric: Appropriate mood and affect. Behavior appears normal. Vital Signs Vital Signs Date Time Temp Pulse Resp B/P Pulse Ox O2 Delivery O2 Flow Rate FiO2 08/10/16 19:29 76 101/70 98 Room Air 08/10/16 17:42 37.0 58 18 97/64 97 Room Air Re-Eval/Medical Decision Med Decision/Clinical Course In summary, this is a 26 yo F presenting to the ED asking for a prescription for pain medication for pelvic pain s/p hysteroscopy yesterday. She has had R sided abdominal pain for the past month - this is not worse today and she has no focal tenderness that I can appreciate to my exam today whatsoever. I'm not sure what she's referring to with respect to the 'infection in [her] appendix' that she was prescribed augmentin for. She has not been taking the medication regardless, and is very comfortable here in the ED with normal vital signs. I do not feel that lab workup or imaging is warranted at this time clinically. Discussed with patient, who is in agreement. I do not feel comfortable writing her a prescription for narcotics s/p hysteroscopy at this time, though she can discuss this with her OB or PCP. NSAIDs for pain for now. No vaginal bleeding now, no discharge. Not vomiting. Presentation and exam do not seem consistent with appendicitis, ovarian torsion. Given the above, and after discussion with the patient, it seems reasonable to discharge home at this time. Patient is comfortable with this plan. Need for close outpatient followup was stressed. The patient was instructed to read all discharge instructions thoroughly and return to the ED if symptoms change or worsen. Plan to have the patient follow up with their PCP in the next several days to be reassessed and to review todays ED visit. Patient verbalized understanding and agreement with the plan, no further questions. Time of Eval: 19:12 Re-Evaluation/Progress Note: Offered CT scan. Patient denies CT scan stating that she is tired and "would like to go home". Discussed plan for discharge and close follow up with her doctor. Patient understands and agrees with plan. All questions addressed at this time. Counseled Regarding: Diagnosis, Need for follow-up, When/why to return to ED Discharge & Departure Primary Impression: Pain associated with surgical procedure Additional Impression: Abdominal pain Abdominal location: unspecified location Qualified Code: R10.9 - Unspecified abdominal pain Disposition: Home Discharge Condition All VS Reviewed: Yes Condition: Stable Additional Instructions: Thank you for entrusting us with your care. You declined a CT scan at this time. Call your doctor tomorrow morning to schedule a follow up appointment. Return to the emergency department for any new or worsening symptoms. Referrals: Negar Reis MD (PCP) Scribe Attestation Portions of this note were transcribed by Donna Ac. I, Dr. Bermeo personally performed the history, physical exam and medical decision-making; I reviewed and confirmed the accuracy of the information in the transcribed note. Signed by: Donna Ac 08/10/16, 192 copies to: Negar Reis MD, William B MD Aug 10, 2016 18:24 DONNA AC Aug 10, 2016 19:05
[2016-08-10 19:29] VITALS: BP 101/70; PULSE 76; O2SAT 98
== END 2016-08-10 19:30 | disposition home or self-care (01) ==
LOC: SED 17:38
DX: R10.9 Unspecified abdominal pain (principal); G89.18 Other acute postprocedural pain; J45.909 Unspecified asthma, uncomplicated; D64.9 Anemia, unspecified; Z88.5 Allergy status to narcotic agent; Z88.6 Allergy status to analgesic agent; Z91.041 Radiographic dye allergy status; Z87.891 Personal history of nicotine dependence

== ENCOUNTER 2016-09-05 17:54 | Emergency (ER) | payer OTHER ==
[~2016-09-05] VITALS: Ht 162.6 cm; Wt 51.2 kg
[2016-09-05 18:01] VITALS: BP 105/69; PULSE 78; RESP 17; O2SAT 100
[2016-09-05 19:29] LABS: APPEARANCE,URINE CLEAR (CLEAR,HAZY); COLOR,URINE YELLOW (YELLOW); OCCULT BLOOD,URINE NEGATIVE (NEGATIVE); PH,URINE 5.5 (5.0-8.0); UROBILINOGEN,URINE NORMAL (NORMAL)
--- NOTE | 2016-09-05 20:10 | ED.REPORT ---
HPI- Female Date of Service Sep 05, 2016 ED Provider: Dr. Praful Delong Patient is a 26 year old female with a hx of gonorrhea, endometriosis, PCOS, IBS , and chronic pelvic pain who presents to the ED due to severe, burning, vaginal , pain starting yesterday during intercourse. The burning began immediately during intercourse and has been less noticeable since then. No lubricants or condoms were used at the time. It was the first time she had intercourse in several months since an appendectomy. Associated symptoms include dysuria. She denies itching, vaginal discharge, bleeding, or any other symptoms. Nursing Notes Stated Complaint: GENERAL COMPLAINT/BURNING Chief Complaint: General Complaint Nursing Notes Reviewed: Yes Allergies: Coded Allergies: Contrast Media (Verified Allergy, Unknown, 06/15/16) Iodine and Iodide Containing Produc (Verified Allergy, Unknown, 06/15/16) doxycycline (Verified Allergy, Unknown, 08/10/16) aspirin (Verified Adverse Reaction, Severe, NV, 06/15/16) hydrocodone (Verified Adverse Reaction, Intermediate, nausea, 07/21/16) Scheduled Albuterol Sulfate (Ventolin HFA Inhaler) 200 Puff/18 Gm Inhaler 2 PUFF INHALATION BID Cephalexin (Cephalexin) 500 Mg Capsule 500 MG PO TID Fluticasone Propionate (Fluticasone Propionate) 50 Mcg/Actuation [place].susp 15.8 ML NS BID Prednisone (PredniSONE) 20 Mg Tablet 40 MG PO DAILY Sodium Chloride (Saline Nasal Mist) 126 Ml Mist 1 SPRAY NASAL DAILY Scheduled PRN Benzonatate (Tessalon Perle) 100 Mg Capsule 100 MG PO TID PRN PRN For Cough Naproxen (Naproxen) 500 Mg Tablet.dr 500 MG PO BID PRN PRN For Pain Ondansetron ODT (Ondansetron ODT) 4 Mg Tab.rapdis 4 MG PO TID PRN PRN For Nausea General Time Seen by MD: 20:09 Chief Complaint Other (vaginal pain) Hx Obtained From: Patient Arrived By: Walk-in Sudden in Onset?: Yes Onset Occurred: Yesterday Symptom Duration: Since onset Quality: Painful Severity: Current: Mild Recent Healthcare: No recent doctor visit, No recent hospitalization Similar Sx Previous: No Past Medical History Past Medical History Notes: physician: Dr. Weinstein Past Medical History 1. Seasonal allergies on Zyrtec 2. Anemia. 3. Asthma. 4. IBS. 5. Endometriosis on Leuprolide injections 6. Chronic Pelvic Pain 7. Adenomyosis Past Surgical History 1. Bilateral tubal ligation (2013). 2. section 2 (). 3. 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 Physical Exam Initial Vital Signs Vital Signs (First) Date Time Temp Pulse Resp B/P Pulse Ox O2 Delivery O2 Flow Rate FiO2 09/05/16 18:01 36.7 78 17 105/69 100 Room Air Initial VS: Reviewed Female Genitourinary: External genitalia NL, No cervical motion tend mucoid discharge present no uterine tenderness General/Constitutional: Awake, Alert, Cooperative, Not toxic appearing Skin: Atraumatic, Color NL, No rash Head / Eyes: Atraumatic, Normocephalic ENT: Atraumatic, Airway patent Upper Extremity / MS: Atraumatic, Inspection NL, Full range of motion, No deformity Lower Extremity / Pelvis / MS: Atraumatic, Inspection NL, Full range of motion , No deformity Neurologic: Oriented X3, Speech NL, No motor deficits Interpretation & Diagnostics Interpretation & Diagnostics: Vaginal wet prep positive for white blood cells, negative for yeast, Trichomonas or clue cells. Gen-Probe for GC and chlamydia were sent Lab Results Interpretation Test 09/05/16 18:45 09/05/16 21:55 Urine Color Yellow (YELLOW) Urine Appearance Clear (CLEAR,HAZY) Urine pH 5.5 (5.0-8.0) Urine Specific [place] 1.025 (1.003-1.035) Urine Protein Negativemg/dL (NEG,TRACE) Urine Glucose (UA) Negativemg/dL (NEGATIVE) Urine Ketones Negativemg/dL (NEGATIVE) Urine Occult Blood Negative (NEGATIVE) Urine Nitrite Negative (NEGATIVE) Urine Bilirubin Negative (NEGATIVE) Urine Urobilinogen Normalmg/dL (NORMAL) Urine Leukocyte Esterase Negative (NEGATIVE) Urine RBC 0-2/hpf (0-2) Urine WBC 0-5/hpf (0-5) Urine Epithelial Cells Few/hpf (NONE-MOD) Urine Crystals None seen (NONE SEEN) Urine Bacteria Few/hpf (NONE-FEW) Urine Hyaline Casts None/lpf (NONE) Urine Granular Casts None seen (NONE SEEN) Urine Waxy Casts None seen (NONE SEEN) Urine Red Blood Cell Casts None seen (NONE SEEN) Urine White Blood Cell Casts None seen (NONE SEEN) Urine Mucus Present (None Seen) Urine Trichomonas None seen (NONE SEEN) Urine Yeast None (NONE SEEN) Urinalysis Comment None Urine Culture Reflexed Not indicated Re-Eval/Medical Decision Med Decision/Clinical Course Discussed results of testing and exam, no evidence of bacterial vaginitis, yeast or Trichomonas. I offered empiric treatment for gonorrhea and chlamydia which the patient declined. She has reliable follow-up. Re-Evaluation/Progress : Time of Eval: 21:47 Re-Evaluation/Progress Note: Pelvic exam performed. Counseled Regarding: Diagnosis, Lab results, Need for follow-up, When/why to return to ED Discharge & Departure Impression: Primary Impression: Vaginal pain Disposition: Home Discharge Condition All VS Reviewed: Yes Condition: Stable Additional Instructions: Emergency Department evaluation included interview, examination testing for vaginitis, gonorrhea and chlamydia. While there is some evidence of vaginal inflammation, no clear infection is identified. Testing for gonorrhea and Chlamydia has not yet returned and we will notify you if it is positive for either of these however to be certain, please recheck with us in 2 days for results. Follow-up with primary care in 2 days as planned. Avoid intercourse until testing returns. Referrals: Negar Reis MD (PCP) Maria Del Carmen Attestation Portion of this note were transcribed by Liz Marroquin. I, Dr. Delong, personally performed the history, physical exam, and medical decision-making: I reviewed and confirmed the accuracy for the information in the transcribed note. Signed by: maria del carmen Molina, 09/05/16 2300 copies to: Negar Reis MD, Donald L MD Sep 05, 2016 20:10 Liz Marroquin Sep 05, 2016 20:22
[2016-09-05 23:01] VITALS: BP 97/57; PULSE 66; RESP 18; O2SAT 100
== END 2016-09-05 23:02 | disposition home or self-care (01) ==
LOC: SED 17:54
DX: R10.2 Pelvic and perineal pain (principal); R30.0 Dysuria; J45.909 Unspecified asthma, uncomplicated; Z98.890 Other specified postprocedural states; Z87.891 Personal history of nicotine dependence; Z88.5 Allergy status to narcotic agent; Z88.8 Allergy status to other drugs, medicaments and biological substances; Z91.041 Radiographic dye allergy status